=== PATIENT | male | born 1995 | race American Indian/Alaskan Native ===

== ENCOUNTER 2019-05-10 06:30 | Emergency (ER) | payer SELFPAY ==
[2019-05-10 06:42] VITALS: BP 123/81
--- NOTE | 2019-05-10 09:27 | Emergency Department Report ---
HPI - General Chief Complaint: Dental/Oral Time Seen by Provider: 05/10/19 09:08 - HPI HPI: 23-year-old male presents to the emergency department with complaint of pain to the left upper jaw/teeth with concern for a dental infection. He says that it has started to cause some swelling to the left side of his face. No drooling or trismus. He has been taking some Tylenol for his symptoms with only transient relief. He is a smoker. Denies any other past medical history. Has not seen a dentist. No fever. ED Past Medical Hx - Past Medical History Previous Medical History?: No - Surgical History Past Surgical History?: No - Social History Smoking Status: Current Every Day Smoker Substance Use Type: Alcohol - Medications Home Medications: Home Medications Medication Instructions Recorded Confirmed Last Taken Type Ibuprofen [Motrin 600 MG tab] 600 mg PO Q8H PRN #20 tablet 05/10/19 Unknown Rx Sulfamethoxazole/Trimethoprim 1 each PO BID #14 tablet 05/10/19 Unknown Rx [Bactrim DS TAB] ED Review of Systems ROS: Stated complaint: TOOTHACHE Other details as noted in HPI Comment: All other systems reviewed and negative Constitutional: denies: chills, fever ENT: dental pain, other (left sided facial swelling). denies: ear pain, throat pain Respiratory: denies: cough Skin: denies: rash Neurological: denies: headache Physical Exam - Physical Exam Vital Signs: Vital Signs 05/10/19 06:38 Temperature 98.3 F Pulse Rate 78 Respiratory 18 Rate Blood Pressure 123/81 O2 Sat by Pulse 99 Oximetry Physical Exam: GENERAL: The patient is well-developed well-nourished. HENT: Normocephalic. Atraumatic. Patient has moist mucous membranes. Patient has a broken tooth to the left upper jaw, first premolar. There is tenderness to palpation along this area of the gumline but no visible or palpable abscess. EYES: Extraocular motions are intact. NECK: Supple. Trachea is midline. CHEST/LUNGS: Clear to auscultation. There is no respiratory distress noted. HEART/CARDIOVASCULAR: Regular. There is no tachycardia. There is no murmur. ABDOMEN: There is no abdominal distention. SKIN: Mild left facial/cheek swelling around the area of the maxilla. NEURO: The patient is awake, alert, and oriented. The patient is cooperative. The patient has normal speech. MUSCULOSKELETAL: There is no tenderness or deformity. There is no evidence of acute injury. ED Course Vital Signs 05/10/19 06:38 Temperature 98.3 F Pulse Rate 78 Respiratory 18 Rate Blood Pressure 123/81 O2 Sat by Pulse 99 Oximetry ED Medical Decision Making - Medical Decision Making Patient presents with a few days of some left upper dental pain and now some recent facial/cheek swelling. There is no visible or palpable dental abscess to I&D. No drooling and trismus. Vital signs stable including being afebrile. Patient was placed on antibiotics and given dentistry referral. He will return to the ER with any worsening of his symptoms or any acute distress. - Differential Diagnosis toothache, dental abscess, gingivitis Critical Care Time: No Critical care attestation.: If time is entered above; I have spent that time in minutes in the direct care of this critically ill patient, excluding procedure time. ED Disposition Clinical Impression: Dental infection, Toothache Disposition: TO HOME OR SELFCARE Is pt being admited?: No Condition: Stable Instructions: Dental Abscess (ED), Toothache (ED) Additional Instructions: Please follow up with a dentist in the next few days. Take the antibiotics as prescribed. Return to the emergency department immediately with any worsening of your symptoms, difficulty swallowing, shortness of breath, development of fever, or with any acute distress. Please try and quit smoking. Prescriptions: Sulfamethoxazole/Trimethoprim [Bactrim DS TAB] 1 each PO BID #14 tablet Ibuprofen [Motrin 600 MG tab] 600 mg PO Q8H PRN #20 tablet PRN Reason: Pain Referrals: [facility] [Outside] - 2-3 Days [facility] [Outside] - 2-3 Days Time of Disposition: 09:26
== END 2019-05-10 09:57 | disposition home or self-care (01) ==
LOC: ED 06:30
DX: K08.89 Other specified disorders of teeth and supporting structures (principal); K02.9 Dental caries, unspecified; F17.200 Nicotine dependence, unspecified, uncomplicated
CPT/HCPCS: 99282

== ENCOUNTER 2019-05-13 08:42 | Emergency (ER) | payer SELFPAY ==
[2019-05-13 08:47] VITALS: BP 148/89
[2019-05-13] MEDS ORDERED: oxyCODONE /ACETAMINOPHEN 5-325MG TAB PO ONE (09:30)
--- NOTE | 2019-05-13 09:43 | Emergency Department Report ---
ED General Adult HPI - General Chief complaint: Dental/Oral Stated complaint: TOOTH ACHE Time Seen by Provider: 05/13/19 09:19 Source: patient Mode of arrival: Ambulatory Limitations: No Limitations - History of Present Illness Initial comments: 23-year-old -[place] male patient presents with complaints of worsening left upper dental pain and facial swelling since his visit here 4 days ago. Patient was prescribed Bactrim and states he has been taking it daily without any improvement. He denies any fever/chills/bodyache or redness to the face. He rates his pain as a 10/10 in severity. - Related Data Previous Rx's Medication Instructions Recorded Last Taken Type Ibuprofen [Motrin 600 MG tab] 600 mg PO Q8H PRN #20 tablet 05/10/19 Unknown Rx Sulfamethoxazole/Trimethoprim 1 each PO BID #14 tablet 05/10/19 Unknown Rx [Bactrim DS TAB] Acetaminophen/Codeine [Tylenol 1 tab PO Q6H PRN #8 tab 05/13/19 Unknown Rx /Codeine # 3 tab] Clindamycin [Clindamycin CAP] 300 mg PO Q6H 10 Days #40 capsule 05/13/19 Unknown Rx predniSONE [Deltasone] 20 mg PO TID 2 Days #6 tab 05/13/19 Unknown Rx Allergies Allergy/AdvReac Type Severity Reaction Status Date / Time No Known Allergies Allergy Unverified 05/13/19 08:44 ED Review of Systems ROS: Stated complaint: TOOTH ACHE Other details as noted in HPI Comment: All other systems reviewed and negative ENT: as per HPI ED Past Medical Hx - Past Medical History Previous Medical History?: Yes Additional medical history: Dental caries - Surgical History Past Surgical History?: No - Social History Smoking Status: Current Every Day Smoker Substance Use Type: Alcohol - Medications Home Medications: Home Medications Medication Instructions Recorded Confirmed Last Taken Type Ibuprofen [Motrin 600 MG tab] 600 mg PO Q8H PRN #20 tablet 05/10/19 Unknown Rx Sulfamethoxazole/Trimethoprim 1 each PO BID #14 tablet 05/10/19 Unknown Rx [Bactrim DS TAB] Acetaminophen/Codeine [Tylenol 1 tab PO Q6H PRN #8 tab 05/13/19 Unknown Rx /Codeine # 3 tab] Clindamycin [Clindamycin CAP] 300 mg PO Q6H 10 Days #40 capsule 05/13/19 Unknown Rx predniSONE [Deltasone] 20 mg PO TID 2 Days #6 tab 05/13/19 Unknown Rx ED Physical Exam - General Limitations: No Limitations General appearance: alert, in no apparent distress - Head Head exam: Present: atraumatic, normocephalic - Eye Eye exam: Present: normal appearance - ENT ENT exam: Present: other (left upper fluctuant dental abscess noted with erythema. No drainage noted. Significant tenderness to palpation. Mild to moderate swelling of left face noted without overlying erythema) - Neck Neck exam: Present: normal inspection, full ROM. Absent: lymphadenopathy - Respiratory Respiratory exam: Absent: respiratory distress - Cardiovascular Cardiovascular Exam: Present: regular rate - Neurological Exam Neurological exam: Present: alert, oriented X3 - Psychiatric Psychiatric exam: Present: normal affect, normal mood - Skin Skin exam: Present: warm, dry, intact, normal color. Absent: rash ED Course Vital Signs 05/13/19 08:44 Temperature 98.3 F Pulse Rate 91 H Respiratory 18 Rate Blood Pressure 148/89 O2 Sat by Pulse 98 Oximetry - I & D Face Type of Procedure: Simple Site: left upper gumline Blade Size: 11 Progress: Dental abscess. Alcohol used to prep site. Moderate drainage from the area. Minimal bleeding. No immediate complications noted post procedure. She tolerated procedure well. ED Medical Decision Making - Medical Decision Making 23-year-old -[place] male patient presents with complaints of worsening left upper dental pain and facial swelling since his visit here 4 days ago. No improvement with Bactrim. Abscess drained successfully without complication. Patient to discontinue Bactrim and start clindamycin. Recommend follow-up with dental specialists within 3-5 days. Discussed very strict return precautions in detail with patient states understanding. Critical care attestation.: If time is entered above; I have spent that time in minutes in the direct care of this critically ill patient, excluding procedure time. ED Disposition Clinical Impression: Dental abscess Disposition: - TO HOME OR SELFCARE Is pt being admited?: No Condition: Stable Instructions: Dental Abscess (ED) Prescriptions: Clindamycin [Clindamycin CAP] 300 mg PO Q6H 10 Days #40 capsule predniSONE [Deltasone] 20 mg PO TID 2 Days #6 tab Acetaminophen/Codeine [Tylenol /Codeine # 3 tab] 1 tab PO Q6H PRN #8 tab PRN Reason: Pain , Severe (7-10) Referrals: PRIMARY CARE,MD [Primary Care Provider] - 3-5 Days
== END 2019-05-13 10:48 | disposition home or self-care (01) ==
LOC: ED 08:42
DX: K04.7 Periapical abscess without sinus (principal); F17.200 Nicotine dependence, unspecified, uncomplicated; Z79.899 Other long term (current) drug therapy